=== PATIENT | male | born 1965 | race Caucasian/White ===

== ENCOUNTER 2018-03-17 06:56 | Emergency (ER) | payer MEDICAID | END 2018-03-17 08:15 | disposition home or self-care (01) | LOC: FTE 06:56 | DX: T15.92XA Foreign body on external eye, part unspecified, left eye, initial encounter (principal); X58.XXXA Exposure to other specified factors, initial encounter; Y92.9 Unspecified place or not applicable | CPT/HCPCS: 65205; 99283-25 ==

== ENCOUNTER 2018-11-27 07:30 | Emergency (ER) | payer MEDICAID ==
[2018-11-27] MEDS: KETOROLAC 60 MG INJ IM (08:13)
== END 2018-11-27 09:23 | disposition home or self-care (01) ==
LOC: FTE 07:30
DX: M54.9 Dorsalgia, unspecified (principal)
CPT/HCPCS: 71100; 72072; 96372; 99284-25